=== PATIENT | female | born 1975 | race Caucasian/White ===

== ENCOUNTER → 2020-07-04 14:22 | Outpatient (CLI) | payer BC, SELFPAY ==
--- NOTE | ~2020-07-04 | MM_ITS ---
EXAMINATION: MM screening madeleine BI w adis HISTORY: Screening mammogram TECHNIQUE: Craniocaudal and mediolateral oblique 3-D tomosynthesis images were obtained and synthetic 2-D images were generated. CAD analysis was submitted and interpreted. COMPARISON: No prior mammogram is available for comparison at this institution. BREAST PARENCHYMAL COMPOSITION: There are scattered areas of fibroglandular density. FINDINGS: There is no evidence of suspicious mass, calcification, or architectural distortion to sugg est malignancy in either breast. There has been no suspicious interval change. IMPRESSION: 1. No mammographic evidence of malignancy. 2. Recommend routine screening mammography in one year. BI-RADS Category 1: Negative Reviewed, dictated and finalized at location A. [employer]
== END ==
PROVIDERS: PCP Nurse Practitioner Adult Health; Visit Provider Obstetrics & Gynecology
DX: Z12.31 Encounter for screening mammogram for malignant neoplasm of breast (principal)
CPT/HCPCS: 77063; 77067

== ENCOUNTER 2023-06-19 09:07 | Outpatient (CLI) | payer BC, SELFPAY ==
--- NOTE | ~2023-06-19 | US_ITS ---
EXAMINATION: US VENOUS LOWER EXT NAM DATE: 06/19/2023 11:11 INDICATION: Varicose veins of the bilateral lower extremities TECHNIQUE: Grayscale images without and with compression and Doppler images of the bilateral lower ex tremity veins were obtained. COMPARISON: None. FINDINGS: Right lower extremity: The right common femoral vein, profunda (deep) femoral vein, femoral vein, popliteal vein, peroneal t runk, posterior tibial veins and greater saphenous vein are patent. A tortuous dilated varicose vein measuring up to 12 mm diameter arises from the mid right greater saphenous vein. Common femoral vein: No reflux Profunda femoral vein: No reflux femoral vein: no reflux popliteal vein: no reflux Greater saphenous Origin: 12 mm no reflux Mid thigh: 7 mm 2 seconds Mid calf: 3 mm no reflux Lesser saphenous Proximal: 4 mm no reflux Distal: 2 mm no reflux Left lower extremity: The left common femoral vein, profunda femoral vein, femoral vein, popliteal vein, and gastrocnemius vein, posterior tibial veins and greater saphenous vein are patent. A dilated varicose vein measuring up to 8 mm arises from the mid left ureter saphenous vein. Common femoral vein: no reflux Profunda femoral vein: No reflux femoral vein: no reflux popliteal vein: no reflux Greater saphenous Origin: 10 mm 2.6 seconds Mid thigh: 7 mm 4.3 seconds Mid calf: 3 mm no reflux Lesser saphenous Proximal: 4 mm no reflux Distal: 2 mm no reflux IMPRESSION: 1. Patent bilateral lower extremity veins. No evidence of deep venous thrombosis. 2. Reflux in the bilateral greater saphenous veins with maximal duration of 2 seconds at the mid rig ht greater saphenous vein and more significantly of 4.3 seconds duration at the mid left greater saph enous vein. 3. Dilated superficial varicosities arising from the midportion of the bilateral greater saphenous ve ins. Reviewed, dictated and finalized at location A. IMPRESSION: 1. Patent bilateral lower extremity veins. No evidence of deep venous thrombos is. 2. Reflux in the bilateral greater saphenous veins with maximal duration of 2 seconds at the mid right greater saphenous vein and more significantly of 4.3 s econds duration at the mid left greater saphenous vein. 3. Dilated superficial varicosities arising from the midportion of the bilatera l greater saphenous veins.
== END 2023-06-19 09:08 | disposition home or self-care (01) ==
PROVIDERS: PCP Nurse Practitioner Adult Health; Visit Provider Nurse Practitioner Adult Health
DX: I83.893 Varicose veins of bilateral lower extremities with other complications (principal)
CPT/HCPCS: 93970

== ENCOUNTER 2025-07-13 08:34 | Emergency (ER) | payer BC, SELFPAY ==
--- NOTE | ~2025-07-13 | XR_ITS ---
EXAMINATION: XR chest 2V DATE: 07/13/2025 09:11 INDICATION: Cough TECHNIQUE: Frontal and lateral views of the chest were obtained. COMPARISON: September 2007 FINDINGS: The lungs are clear. Heart size normal. Suggestion of slight peribronchial thickening may be present. Bones and upper abdomen unremarkable. IMPRESSION: No focal consolidation or effusion. Slight peribronchial thickening may be present which could be associated with atypical inflammatory or infectious airways process. Reviewed, dictated and finalized at location A. L WINDER IMPRESSION: No focal consolidation or effusion. Slight peribronchial thickenin g may be present which could be associated with atypical inflammatory or infect ious airways process.
--- NOTE | ~2025-07-13 | CT_ITS ---
EXAMINATION: CT brain wo con COMPARISON: None HISTORY: occipital KOEHLER TECHNIQUE: Axial images were obtained through the brain without IV contrast. CT scan performed using dose optimization techniques including the following automated exposure control; adjustment of mA and/or kV; use of iterative reconstruction technique. Automatic exposure control was used to reduce radiation dose. Permanent radiation dose record is archived to PACS. FINDINGS: No acute infarct or parenchymal hemorrhage. No abnormal mass or mass effect. No midline shift. No extra-axial fluid collections. No hydrocephalus. . Mastoid air cells unremarkable. Sinuses and orbits unremarkable. No acute fracture. No significant facial or scalp soft tissue swelling evident. No radiopaque foreign body is seen. Impression: 1.No acute intracranial abnormality. Reviewed, dictated and finalized at location P. S SUPPORT COORDINATOR Impression: 1.No acute intracranial abnormality.
[2025-07-13 08:35] VITALS: BP 132/78; PULSE 104; RESP 16; TEMP 36.1; O2SAT 100
[2025-07-13 08:46] VITALS: BP 132/77; PULSE 99; RESP 18; TEMP 36.5; O2SAT 100
--- NOTE | 2025-07-13 09:39 | PC.NURSE ---
family member up to nurses station to state that patients head feels like it's going to explode. Pt not assigned to a provider yet. But PA & ERP made aware of complaint.
[2025-07-13 10:02] LABS: Influenza A QL RT-PCR Negative (Negative); Influenza B QL RT-PCR Negative (Negative); RSV RNA, RT-PCR Negative (Negative); SARS-CoV-2 RNA PCR Negative (Negative)
--- NOTE | 2025-07-13 10:16 | ED_ITS ---
HPI - General Adult General Chief complaint: Upper Respiratory Infection Stated complaint: cough X1 week Time Seen by Provider: 07/13/25 10:13 Source: patient Mode of arrival: ambulatory Limitations: no limitations History of Present Illness HPI narrative: 50 YEARS OLD WHITE FEMALE CAME TO THE ED YOU WITH HER BY PRIVATE CAR FROM HOME COMPLAINING OF OCCIPITAL HEADACHE, SHARP, THROBBING GOING DOWN TO THE BACK OF HER NECK STARTED YESTERDAY MORNING AND HAS BEEN STEADY SINCE. SHE DENIES ANY FEVER, CHILLS, NAUSEA, VOMITING, DIARRHEA, CONSTIPATION, CHEST PAIN, SHORTNESS OF BREATH. HISTORY OF MIGRAINE HEADACHE BUT USUALLY FRONTAL THIS 1 IS DIFFERENT, USUALLY GETS BETTER ON EXCEDRIN, PATIENT HAD EXCEDRIN YESTERDAY WITHOUT SIGNIFICANT IMPROVEMENT. PATIENT REPORT TONS OF STRESS LATELY. PATIENT DOES NOT TAKE MEDICINE AT HOME. SHE DOES NOT SMOKE OR USE DRUGS, DRINKS OCCASIONALLY. HEADACHE WORSE LAYING DOWN FLAT, BETTER IF SHE SIT UP AND LEAN FORWARD. Related Data Allergies Allergy/AdvReac Type Severity Reaction Status Date / Time No Known Allergies Allergy Mild Verified 07/13/25 08:41 Review of Systems 2 Review of Systems: All systems reviewed & are unremarkable except as noted in HPI and below PMFSH Past Medical History Medical History Otitis media with effusion Otitis media Surgical History Surgical History Myringotomy tube status previously placed History of endometrial ablation Family History Family History Grandparent Heart disease Social History Social History Smoking status: Never smoker Alcohol use details: hardly at all Substance use: never Lack of Transportation: No Lack of Food: Never True Current Housing: I Have Housing Concerned About Future Housing: No Difficulty Paying Gas/Electric Bills: No Difficulty Paying for Meds: No Currently Unemployed: No Education: High School Diploma/GED Difficulty w/ Childcare or Family Care: No Living arrangements: with family Occupation/Education: occupation 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 MUSCULOSKELETAL: NORMAL RANGE OF MOTION, NONTENDER BACK NEUROLOGIC: ALERT AND ORIENTED ?3, GENERAL LEDGER BOOKKEEPER IS NORMAL TESTED, NO GROSS MOTOR DEFICIT Course Vital Signs Vital signs: Vital Signs Temperature 36.1 C L 07/13/25 08:35 Pulse Rate 104 H 07/13/25 08:35 Respiratory Rate 16 07/13/25 08:35 Blood Pressure 132/78 07/13/25 08:35 Pulse Oximetry 100 07/13/25 08:35 Oxygen Delivery Room Air 07/13/25 08:35 Temperature 36.5 C 07/13/25 08:46 Pulse Rate 76 07/13/25 11:38 Respiratory Rate 16 07/13/25 11:38 Blood Pressure 106/74 07/13/25 11:38 Pulse Oximetry 99 07/13/25 11:38 Oxygen Delivery Room Air 07/13/25 08:46 Medical Decision Making [facility] Narrative Medical decision making narrative: PATIENT CAME WITH OCCIPITAL HEADACHE AND A LOT OF STRESS LATELY VITAL SIGNS ARE STABLE PHYSICAL EXAMINATION IS UNREMARKABLE DIFFERENTIAL DIAGNOSIS INCLUDE TENSION HEADACHE, MIGRAINE HEADACHE, INTRACRANIAL TUMOR OR BLEED, UPPER RESPIRATORY VIRAL INFECTION BLOOD WORKUP TODAY INCLUDES CBC, CMP SHOWED INSIGNIFICANT ABNORMALITY URINALYSIS SHOWED EVIDENCE OF INFECTION PATIENT TESTED NEGATIVE FOR STREP, COVID FLU RSV PATIENT TESTED NEGATIVE FOR MONO CT HEAD WITHOUT CONTRAST SHOWED NO ACUTE ABNORMALITY CHEST X-RAY SHOWED INFLAMMATORY/ INFECTIOUS AIRWAY DIAGNOSIS: URINARY TRACT INFECTION, HEADACHE DISCHARGED ON MACROBID THE PT WAS DISCHARGED TO HOME.THE PT,S CONDITION UPON DISCHARGE WAS FAIR,EDUCATION WAS PROVIDED TO THE PT IN REFERENCE TO THE FINAL IMPRESSION,DISCHARGE STUDY RESULTS,TREATMENT,PROGNOSIS AND NEED FOR FOLLOW UP . Differential Diagnosis Differential Diagnosis: ABOVE Vital Signs Vital Signs: Vital Signs Temperature 36.1 C L 07/13/25 08:35 Pulse Rate 104 H 07/13/25 08:35 Respiratory Rate 16 07/13/25 08:35 Blood Pressure 132/78 07/13/25 08:35 Pulse Oximetry 100 07/13/25 08:35 Oxygen Delivery Room Air 07/13/25 08:35 Temperature 36.5 C 07/13/25 08:46 Pulse Rate 76 07/13/25 11:38 Respiratory Rate 16 07/13/25 11:38 Blood Pressure 106/74 07/13/25 11:38 Pulse Oximetry 99 07/13/25 11:38 Oxygen Delivery Room Air 07/13/25 08:46 Lab Data 07/13/25 10:54 07/13/25 10:54 Labs: Lab Results 07/13/25 07/13/25 07/13/25 Range/Units 09:17 10:54 11:40 WBC 8.8 (4.5-10.0) K/mm3 RBC 4.39 (4.2-5.4) M/mm3 Hgb 13.0 (12.0-15.0) g/dL Hct 39.8 (37.0-47.0) % MCV 90.7 (80-100) fl MCH 29.6 (26-34) pg MCHC 32.7 (32-36) g/dl RDW 12.7 (11.5-14.5) % Plt Count 342 (150-375) k/mm3 MPV 9.5 (7.4-10.4) fl Immature Gran % (Auto) 0.3 (0-0.5) % Neut % (Auto) 71.4 (45.5-73.1) % Lymph % (Auto) 18.9 (18.3-44.2) % [place] % (Auto) 7.7 (2.6-8.5) % Eos % (Auto) 1.2 (0-4.4) % Baso % (Auto) 0.5 (0.2-1.2) % Lymph # (Auto) 1.67 (0.9-3.2) K/mm3 [place] # (Auto) 0.7 H (0.1-0.6) K/mm3 Eos # (Auto) 0.1 (0-0.3) K/mm3 Baso # (Auto) 0.0 (0.0-0.1) K/mm3 Abs Immat Gran (auto) 0.03 (0.00-0.031) K/mm3 Absolute Neuts (auto) 6.3 (1.3-6.7) K/mm3 Absolute Nucleated RBC 0.000 (0.0-0.012) K/mm3 Nucleated RBC % 0.0 (0.0-0.2) % Sodium 138 (137-145) mmol/L Potassium 4.1 (3.4-5.0) mmol/L Chloride 103 (98-107) mmol/L Carbon Dioxide 25 (22-30) mmol/L Anion Gap 10 (4-12) mmol/L BUN 14 D (7-17) mg/dL Creatinine 0.65 L (0.7-1.0) mg/dL Estim Creat Clear Calc 77 ml/min Estimated GFR > 60 (59 - ) Glucose 94 (65-110) mg/dL Calcium 9.6 (8.4-10.2) mg/dL Total Bilirubin 0.5 (0.2-1.3) mg/dL AST 28 (14-36) U/L ALT 20 (6-35) U/L Alkaline Phosphatase 83 (38-126) U/L Total Protein 8.1 (6.3-8.2) g/dL Albumin 4.5 (3.5-5.1) g/dL Urine Color Yellow (Yellow) Urine Appearance Cloudy H (Clear) Urine pH 8.0 (5.0-9.0) Ur Specific [place] 1.013 (1.001-1.035) Urine Protein Negative (Negative) mg/dL Urine Glucose (UA) Negative (Negative) mg/dL Urine Ketones 1+ H (Negative) mg/dL Ur Blood (Man) Negative (Negative) Urine Nitrate Negative (Negative) Urine Bilirubin Negative (Negative) Urine Urobilinogen 0.2 (<2.0) mg/dL Add Ur Microanalysis Reviewed Leukocyte Esterase Rfl 3+ H (Negative) PHILL/UL Urine RBC 0-2 (0-2) /hpf Urine WBC 21-50 H (0-3) /hpf Ur Squamous Epith Cells Many H (Few) /hpf Urine Bacteria 1+ H /hpf Urine Casts 3-5 Monoscreen Negative (Negative) Influenza A (RT-PCR) Negative (Negative) Influenza B (RT-PCR) Negative (Negative) RSV (RT-PCR) Negative (Negative) SARS-CoV-2 RNA (RT-PCR) Negative (Negative) Group A Strep (PCR) Not detected (Negative) Imaging Data Radiologist's impression: Impressions Chest X-Ray 07/13/25 09:13 IMPRESSION: No focal consolidation or effusion. Slight peribronchial thickening may be present which could be associated with atypical inflammatory or infectious airways process. Head CT 07/13/25 10:30 Impression: 1.No acute intracranial abnormality. Critical Care Time Critical Care Time Critical Care Time: Yes Total Critical Care Time: 30 Discharge Plan Discharge Clinical Impression: Urinary tract infection, Headache Patient Disposition: Home Condition: Improved Instructions: Antibiotic Form, Urinary Tract Infection in Women (DC), Acute Headache (DC) Additional Instructions: RETURN IF SYMPTOMS ARE WORSENING , CALL YOUR FAMILY PHYSICIAN FOR APPOINTMENT, TAKE TYLENOL NEEDED FOR ACHES AND PAIN, CONTINUE HOME MEDICATIONS. Patient Language: Indonesian Prescriptions: New nitrofurantoin monohyd/m-cryst [Macrobid] 100 mg capsule 100 mg PO Q12H 5 Days Qty: 10 0RF Rx Instructions: must administer with a meal/food No Action phentermine 37.5 mg tablet 37.5 mg PO DAILY Qty: 30 0RF Rx Instructions: must administer 30 minutes before or 1-2 hours after breakfast Follow-up/Referrals: Rajani Samayoa APRN [Primary Care Provider, Family Practice]
[2025-07-13] MEDS: IBUPROFEN 400 MG TABLET 800 MG PO (10:34)
[2025-07-13] MEDS: HYDROcodone/acetaminophen (*CRX) 5-325 MG TABLET 1 TAB PO (10:35)
[2025-07-13 11:02] LABS: Hematocrit 39.8 % (37.0-47.0); Hemoglobin 13.0 g/dL (12.0-15.0); Immature Granulocyte Percent A 0.3 % (0-0.5); Lymphocytes Absolute Auto 1.67 K/mm3 (0.9-3.2); Mean Corpuscular HGB Conc 32.7 g/dl (32-36); Mean Corpuscular Hemoglobin 29.6 pg (26-34); Mean Corpuscular Volume 90.7 fl (80-100); Nucleated Red Blood Cells Absolute Auto 0.000 K/mm3 (0.0-0.012); Nucleated Red Blood Cells Perc 0.0 % (0.0-0.2); Platelet Count Result 342 k/mm3 (150-375); Red Blood Count 4.39 M/mm3 (4.2-5.4); White Blood Count 8.8 K/mm3 (4.5-10.0)
[2025-07-13 11:22] LABS: Alanine Aminotransferase 20 U/L (6-35); Albumin Level 4.5 g/dL (3.5-5.1); Alkaline Phosphatase 83 U/L (38-126); Anion Gap 10 mmol/L (4-12); Aspartate Amino Transferase 28 U/L (14-36); Bilirubin,Total 0.5 mg/dL (0.2-1.3); Blood Urea Nitrogen 14 mg/dL (7-17); Calcium 9.6 mg/dL (8.4-10.2); Carbon Dioxide 25 mmol/L (22-30); Chloride 103 mmol/L (98-107); Estimated CRCL calculation 77 ml/min; Estimated Glomerular Filt Rate > 60; Glucose 94 mg/dL (65-110); Potassium 4.1 mmol/L (3.4-5.0); Sodium 138 mmol/L (137-145); Total Protein 8.1 g/dL (6.3-8.2)
[2025-07-13 11:26] LABS: Strep Group A RT-PCR NOT DETECTED (Negative)
[2025-07-13 11:31] LABS: Negative Monotest Control Negative (Negative); Positive Monotest Control Positive (Positive)
[2025-07-13] MEDS: SODIUM CHLORIDE 0.9% IV 1,000 ML 999 ML IV CONT (11:36)
[2025-07-13] MEDS: METOCLOPRAMIDE HCL INJ 10 MG/2 ML VIAL IV PUSH (11:37)
[2025-07-13 11:38] VITALS: BP 106/74; PULSE 76; RESP 16; O2SAT 99
[2025-07-13 11:58] LABS: Add Urine Microscopic? YES; Appearance Urine Cloudy (Clear); Glucose Urine UA Negative (Negative); Leukocyte Esterase Ur 3+ LEU/UL (Negative); Need Manual Microscopic Reviewed; Nitrate Urine Negative (Negative); Specific Grav Ur 1.013 (1.001-1.035)
[2025-07-13] MEDS: cefTRIAXone 1 GM in SODIUM CHLORIDE 0.9% IV 50 ML 100 ML IVPB (12:47)
[2025-07-13 13:15] VITALS: BP 124/69; PULSE 68; RESP 17; O2SAT 99
== END 2025-07-13 13:16 | disposition home or self-care (01) ==
PROVIDERS: Emergency Provider Emergency Medicine; PCP Nurse Practitioner Adult Health
DX: R51.9 Headache, unspecified (principal); N39.0 Urinary tract infection, site not specified; Z20.822 Contact with and (suspected) exposure to COVID-19
CPT/HCPCS: 36415; 70450; 71046; 80053; 81001; 85025; 86308; 87637; 87651; 96361; 96365; 96375; 99284; A9270; J0696; J1200; J2765; J7030